=== PATIENT | male | born 1955 | race Caucasian/White ===

== ENCOUNTER 2019-07-28 23:43 | Inpatient (IN) | payer OTHER ==
[~2019-07-28] VITALS: Ht 170.2 cm; Wt 88.0 kg
[2019-07-29 00:34] LABS: BASOPHIL % 0.4 % (0-2); PLATELET COUNT 166 x10^3mcL (130-400); RED CELL DISTRIBUTION WIDTH 12.9 % (11.5-14.5)
[2019-07-29 00:44] LABS: CALCIUM 8.2 mg/dL (8.5-10.1); CARBON DIOXIDE 29.8 mmol/L (21-32); CHLORIDE SERUM 102 mmol/L (98-107); GFR1 > 60 mL/min; GLUCOSE SERUM 116 mg/dL (74-106); POTASSIUM SERUM 3.4 mmol/L (3.5-5.1); SODIUM SERUM 140 mmol/L (136-145)
[2019-07-29 00:49] LABS: ALBUMIN 3.7 g/dL (3.4-5.0); ALKALINE PHOSPHATASE 59 U/L (46-116); ALT/SGPT 46 U/L (16-63); AST/SGOT 22 U/L (15-37); BILIRUBIN TOTAL 0.24 mg/dL (0.20-1.00); TOTAL PROTEIN, SERUM 6.6 g/dL (6.4-8.2)
[2019-07-29] MEDS ORDERED: BUPROPION HCL150 M1 PO (01:51)
[2019-07-29] MEDS ORDERED: ESCITALOPRAM OX20 MG PO (01:51)
[2019-07-29] MEDS ORDERED: WELLBUTRIN XL150 M1 PO (01:59)
[2019-07-29] MEDS ORDERED: LEXAPRO20 MG PO (01:59)
[2019-07-29 02:17] LABS: CHOLESTEROL/HDL RATIO 4.6
[2019-07-29 02:18] LABS: T3 TOTAL 1.07 ng/mL
[2019-07-29 02:19] LABS: FREE T4 1.09 ng/dL (0.76-1.46); FREE THYROXINE INDEX 1.7 ug/dL (1.4-4.5); T4(THYROXINE) 5.6 ug/dL (4.7-13.3)
[2019-07-29 03:10] VITALS: BP 113/60
[2019-07-29 05:24] VITALS: BP 99/60
[2019-07-29 07:09] LABS: CALCIUM 8.5 mg/dL (8.5-10.1); CARBON DIOXIDE 30.7 mmol/L (21-32); CHLORIDE SERUM 104 mmol/L (98-107); CREATININE SERUM 0.8 mg/dL (0.7-1.3); GFR1 > 60 mL/min; GLUCOSE SERUM 103 mg/dL (74-106); SODIUM SERUM 140 mmol/L (136-145)
[2019-07-29 07:25] LABS: BASOPHIL % 0.4 % (0-2); PLATELET COUNT 155 x10^3mcL (130-400); RED CELL DISTRIBUTION WIDTH 13.2 % (11.5-14.5)
[2019-07-29 08:37] VITALS: BP 101/66
[2019-07-29] MEDS ORDERED: LIPI10 PO (09:38)
[2019-07-29] MEDS ORDERED: NOR5 PO (09:38)
[2019-07-29] MEDS ORDERED: QUALITY CHOICE PO (09:39)
[2019-07-29 11:06] LABS: microscopic required? NO
[2019-07-29 11:33] LABS: urine erythrocyte NEGATIVE (NEGATIVE)
[2019-07-29 11:43] LABS: AMPHETAMINE QUAL UR NONE DETECTED (See below)
[2019-07-29 12:55] VITALS: BP 111/59
== END 2019-07-29 14:59 | disposition home or self-care (01) | DRG 313 ==
LOC: ED 23:43 → DU 07-29 01:38
PROVIDERS: Emergency Medicine; ADMIT Family Medicine; ATTEND Family Medicine
DX: R07.89 Other chest pain (principal); F41.9 Anxiety disorder, unspecified; F32.9 Major depressive disorder, single episode, unspecified; E87.6 Hypokalemia; Z79.899 Other long term (current) drug therapy
CPT/HCPCS: 83880; 84439; G0378; Q0092